=== PATIENT | male | born 1965 | race Caucasian/White ===

== ENCOUNTER 2023-08-02 18:45 | Inpatient (IN) | payer OTHER ==
[~2023-08-02] VITALS: Ht 185.4 cm; Wt 101.9 kg
[2023-08-02] MEDS ORDERED: IV NORMAL SALINE 500 ML IV ONE ×3 (19:30→22:45)
[2023-08-02] MEDS ORDERED: LISI-782 PO (19:33)
[2023-08-02] MEDS ORDERED: FURO-152 PO (19:33)
[2023-08-02] MEDS ORDERED: ALLO100T PO (19:33)
[2023-08-02] MEDS ORDERED: APIX5TAB4 PO (19:33)
[2023-08-02 19:51] LABS: BASOPHILS % (AUTO) 0.2 % (0.0-2.0); HEMATOCRIT 23.8 % (36.7-47.1); HEMOGLOBIN 7.9 g/dL (12.5-16.3); LYMPHOCYTES # (AUTO) 0.4 K/uL (0.8-4.8); LYMPHOCYTES % (AUTO) 1.9 % (20.5-51.5); MEAN CORPUSCULAR HEMOGLOBIN 33.4 uug (23.8-33.4); MEAN CORPUSCULAR HGB CONC 33 g/dL (32.5-36.3); MEAN CORPUSCULAR VOLUME 99.9 fL (73.0-96.2); MONOCYTES # (AUTO) 0.8 K/uL (0.1-1.30); MONOCYTES % (AUTO) 4.2 % (0.0-11.0); NEUTROPHILS # (AUTO) 17.4 K/uL (1.8-8.9); NEUTROPHILS % (AUTO) 93.7 % (38.5-71.5); PLATELET COUNT (AUTO) 115 K/uL (152-348); RED CELL DISTRIBUTION WIDTH 14.6 % (12.1-16.2); WHITE BLOOD COUNT (AUTO) 18.6 K/uL (3.6-10.2)
[2023-08-02 20:20] LABS: ALANINE AMINOTRANSFERASE 17 U/L (16-63); ALKALINE PHOSPHATASE 85 U/L (50-136); ASPARTATE AMINOTRANSFERASE 40 U/L (15-37); BILIRUBIN,DIRECT 0.2 mg/dL (0.0-0.2); BILIRUBIN,TOTAL 0.5 mg/dL (0.2-1.0); CALCIUM 7.5 mg/dL (8.5-10.1); CARBON DIOXIDE 23 mmol/L (21-32); CHLORIDE 93 mmol/L (98-107); GLUCOSE 83 mg/dL (74-106); POTASSIUM 3.1 mmol/L (3.5-5.1); SODIUM SERUM 129 mmol/L (136-145); TOTAL PROTEIN, SERUM 4.3 g/dL (6.4-8.2); UREA NITROGEN, BLOOD 21 mg/dL (7-18)
[2023-08-02 20:22] LABS: ALBUMIN 1.3 g/dL (3.4-5.0); MAGNESIUM 1.6 mg/dL (1.8-2.4)
[2023-08-02 20:25] LABS: DIFFERENTIAL COMMENT 1; RED BLOOD CELL COUNT(AUTO) 2.38 MIL/uL (4.06-5.63)
[2023-08-02 20:43] LABS: ETHANOL < 3 MG/DL (0-10)
[2023-08-02] MEDS ORDERED: ALBUMIN HUMAN 25% 100 ML IV ONE (21:30)
[2023-08-02] MEDS ORDERED: CEFTRIAXONE 1 G in IV DEXTROSE 5% 50 ML IV ONE (22:00)
[2023-08-02] MEDS ORDERED: POTASSIUM BICARBONATE/CIT AC 25 MEQ TABLET.EFF PO ONE (22:00)
[2023-08-02] MEDS ORDERED: CEFTRIAXONE /D5W 50ML IVPB **ER PYXIS IV ONE (23:09)
[2023-08-03] MEDS ORDERED: IV NORMAL SALINE 500 ML IV ONE (02:30)
[2023-08-03] MEDS ORDERED: ONDANSETRON 4 MG/2 ML VIAL IV PRN (03:00)
[2023-08-03] MEDS ORDERED: MAGNESIUM HYDROXIDE 30 ML LIQUID UDC PO PRN (03:00)
[2023-08-03] MEDS ORDERED: IV NS 1000 ML 1,000 ML IV PRN (03:00)
[2023-08-03] MEDS ORDERED: MIDODRINE HCL 5 MG TABLET PO ONE (03:27)
[2023-08-03] MEDS ORDERED: levoFLOXacin 750MG/D5W 150 ML IV ONE (03:28)
[2023-08-03] MEDS ORDERED: MIDODRINE HCL 5 MG TABLET ONE ×2 (03:29→21:16)
[2023-08-03] MEDS ORDERED: MAGNESIUM SULFATE/D5W 100 ML ONE ×2 (03:29→03:51)
[2023-08-03] MEDS ORDERED: levoFLOXacin 750MG/D5W 750 MG in PREMIXED 1 EACH IV SCH (04:00)
[2023-08-03] MEDS: MAGNESIUM SULFATE/D5W 100 ML IV SCH ×2 (05:03→06:02)
[2023-08-03 05:34] LABS: BASOPHILS % (AUTO) 0.2 % (0.0-2.0); EOSINOPHILS # (AUTO) 0.1 K/uL (0.0-0.7); EOSINOPHILS % (AUTO) 0.9 % (0.0-7.0); HEMATOCRIT 22.7 % (36.7-47.1); HEMOGLOBIN 7.7 g/dL (12.5-16.3); LYMPHOCYTES # (AUTO) 0.5 K/uL (0.8-4.8); LYMPHOCYTES % (AUTO) 4.3 % (20.5-51.5); MEAN CORPUSCULAR HEMOGLOBIN 34.1 uug (23.8-33.4); MEAN CORPUSCULAR HGB CONC 34 g/dL (32.5-36.3); MEAN CORPUSCULAR VOLUME 99.8 fL (73.0-96.2); MONOCYTES # (AUTO) 0.5 K/uL (0.1-1.30); MONOCYTES % (AUTO) 4.3 % (0.0-11.0); NEUTROPHILS # (AUTO) 9.5 K/uL (1.8-8.9); NEUTROPHILS % (AUTO) 90.3 % (38.5-71.5); PLATELET COUNT (AUTO) 72 K/uL (152-348); RED CELL DISTRIBUTION WIDTH 14.6 % (12.1-16.2); WHITE BLOOD COUNT (AUTO) 10.5 K/uL (3.6-10.2)
[2023-08-03 05:48] LABS: DIFFERENTIAL COMMENT 1; RED BLOOD CELL COUNT(AUTO) 2.27 MIL/uL (4.06-5.63)
[2023-08-03 05:52] LABS: THYROID STIMULATING HORMONE 2.938 mIU/mL (0.358-3.740)
[2023-08-03] MEDS ORDERED: PANTOPRAZOLE SODIUM 40 MG TABLET.DR PO ONE (06:06)
[2023-08-03] MEDS: PANTOPRAZOLE SODIUM 40 MG TABLET.DR PO SCH (06:07)
[2023-08-03 06:22] LABS: BILIRUBIN,TOTAL 0.4 mg/dL (0.2-1.0); CALCIUM 6.8 mg/dL (8.5-10.1); CREATININE 1.9 mg/dL (0.6-1.3); MAGNESIUM 1.6 mg/dL (1.8-2.4); POTASSIUM 3.5 mmol/L (3.5-5.1); TOTAL PROTEIN, SERUM 3.9 g/dL (6.4-8.2)
[2023-08-03 06:33] LABS: ALBUMIN 1.2 g/dL (3.4-5.0)
[2023-08-03 06:48] LABS: LYMPHOCYTES % (MANUAL) 2 % (20-40); MONOCYTES % (MANUAL) 4 % (2-10); NEUTROPHILS % (MANUAL) 94 % (42-75); PLATELET ESTIMATE MARKED DECREASED
[2023-08-03] MEDS ORDERED: IV NORMAL SALINE 1000 ML BAG IV ONE (11:00)
[2023-08-03 11:29] LABS: *BLOOD, URINE 2+ (NEGATIVE); *CLARITY,URINE CLEAR (CLEAR); *COLOR,URINE YELLOW (YELLOW); *KETONES,URINE TRACE (NEGATIVE); *PROTEIN,URINE 1+ (NEGATIVE); *UROBILINOGEN,URINE 0.2 E.U./dl (NORMAL); LEUKOCYTE ESTERASE ,URINE NEGATIVE (NEGATIVE); NITRITE, URINE NEGATIVE (NEGATIVE); PH,URINE 5.5 (5.0-8.0); UGLUCOSE NEGATIVE (NEGATIVE)
[2023-08-03 11:44] LABS: *BILIRUBIN,URIN 1+ (NEGATIVE)
[2023-08-03] MEDS ORDERED: MAGNESIUM OXIDE 400 MG TABLET PO ONE (12:00)
[2023-08-03 13:10] LABS: BASOPHILS % (AUTO) 0.2 % (0.0-2.0); DIFFERENTIAL COMMENT 0; EOSINOPHILS # (AUTO) 0.1 K/uL (0.0-0.7); EOSINOPHILS % (AUTO) 1.1 % (0.0-7.0); HEMATOCRIT 23.8 % (36.7-47.1); HEMOGLOBIN 8.1 g/dL (12.5-16.3); LYMPHOCYTES # (AUTO) 0.4 K/uL (0.8-4.8); MEAN CORPUSCULAR HEMOGLOBIN 33.8 uug (23.8-33.4); MEAN CORPUSCULAR HGB CONC 34 g/dL (32.5-36.3); MEAN CORPUSCULAR VOLUME 99.3 fL (73.0-96.2); MONOCYTES # (AUTO) 0.2 K/uL (0.1-1.30); MONOCYTES % (AUTO) 2.7 % (0.0-11.0); NEUTROPHILS # (AUTO) 8.3 K/uL (1.8-8.9); PLATELET COUNT (AUTO) 68 K/uL (152-348); RED CELL DISTRIBUTION WIDTH 14.7 % (12.1-16.2); WHITE BLOOD COUNT (AUTO) 9.1 K/uL (3.6-10.2)
[2023-08-03 13:13] LABS: BACTERIA,URINE NONE SEEN /HPF (NONE SEEN); SQUAMOUS EPITHELIAL CELL,UR MODERATE /HPF (NONE SEEN)
[2023-08-03 13:14] LABS: WBC,URINE 0-3 /HPF (0-3)
[2023-08-03 13:18] LABS: RED BLOOD CELL COUNT(AUTO) 2.39 MIL/uL (4.06-5.63)
[2023-08-03] MEDS ORDERED: ALLO100T56 PO (17:35)
[2023-08-03] MEDS ORDERED: LISI20TA30 PO (17:35)
[2023-08-03] MEDS ORDERED: APIX5TAB PO (17:35)
[2023-08-03] MEDS ORDERED: FURO40TA5 PO (17:35)
[2023-08-03] MEDS ORDERED: MAGNESIUM OXIDE 400 MG TABLET ONE (19:45)
[2023-08-03] MEDS ORDERED: CLINDAMYCIN 600 MG PIGGYBACK**ER OMNI IV ONE (21:17)
[2023-08-03] MEDS: CLINDAMYCIN PHOSPHATE IV 600 MG in IV DEXTROSE 5% 100 ML IV SCH (21:25)
[2023-08-03] MEDS: MIDODRINE HCL 5 MG TABLET PO SCH (21:26)
[2023-08-04] VITALS (68 sets, daily range): BP systolic 62–122; BP diastolic 32–107; TEMP 96.5–98; O2SAT 97–100
[2023-08-04] MEDS: IV NS 1000 ML 1,000 ML IV PRN ×2 (00:30→09:38)
[2023-08-04] MEDS ORDERED: levoFLOXacin 750MG/D5W 750 MG in PREMIXED 1 EACH IV SCH (04:00)
[2023-08-04 04:44] LABS: BASOPHILS % (AUTO) 0.2 % (0.0-2.0); EOSINOPHILS # (AUTO) 0.1 K/uL (0.0-0.7); EOSINOPHILS % (AUTO) 0.9 % (0.0-7.0); HEMATOCRIT 24.8 % (36.7-47.1); HEMOGLOBIN 8.5 g/dL (12.5-16.3); LYMPHOCYTES # (AUTO) 0.4 K/uL (0.8-4.8); LYMPHOCYTES % (AUTO) 6.5 % (20.5-51.5); MEAN CORPUSCULAR HEMOGLOBIN 34.6 uug (23.8-33.4); MEAN CORPUSCULAR HGB CONC 35 g/dL (32.5-36.3); MEAN CORPUSCULAR VOLUME 100.3 fL (73.0-96.2); MONOCYTES # (AUTO) 0.3 K/uL (0.1-1.30); MONOCYTES % (AUTO) 4.5 % (0.0-11.0); NEUTROPHILS % (AUTO) 87.9 % (38.5-71.5); PLATELET COUNT (AUTO) 57 K/uL (152-348); RED CELL DISTRIBUTION WIDTH 14.5 % (12.1-16.2); WHITE BLOOD COUNT (AUTO) 6.8 K/uL (3.6-10.2)
[2023-08-04 05:12] LABS: DIFFERENTIAL COMMENT 1; RED BLOOD CELL COUNT(AUTO) 2.47 MIL/uL (4.06-5.63)
[2023-08-04] MEDS ORDERED: NOREPINEPHRINE BITARTRATE 4 MG/4 ML VIAL IV ONE ×2 (05:23→11:06)
[2023-08-04] MEDS: NOREPINEPHRINE BITARTRATE 8 MG in IV NORMAL SALINE 242 ML IV PRN ×3 (05:30→11:14)
[2023-08-04 05:37] LABS: BILIRUBIN,TOTAL 0.4 mg/dL (0.2-1.0); CREATININE 1.8 mg/dL (0.6-1.3); MAGNESIUM 1.9 mg/dL (1.8-2.4); PHOSPHOROUS 4.7 mg/dL (2.5-4.9); POTASSIUM 3.3 mmol/L (3.5-5.1); TOTAL PROTEIN, SERUM 3.9 g/dL (6.4-8.2)
[2023-08-04 05:45] LABS: ALBUMIN 1.1 g/dL (3.4-5.0)
[2023-08-04 05:59] LABS: CALCIUM 7.1 mg/dL (8.5-10.1)
[2023-08-04 06:35] LABS: ANISOCYTOSIS 1+; LYMPHOCYTES % (MANUAL) 9 % (20-40); MONOCYTES % (MANUAL) 2 % (2-10); NEUTROPHILS % (MANUAL) 89 % (42-75); PLATELET ESTIMATE MARKED DECREASED
[2023-08-04] MEDS: PANTOPRAZOLE SODIUM 40 MG TABLET.DR PO SCH (07:58)
[2023-08-04] MEDS: MIDODRINE HCL 5 MG TABLET PO SCH (08:36)
[2023-08-04] MEDS: CLINDAMYCIN PHOSPHATE IV 600 MG in IV DEXTROSE 5% 100 ML IV SCH ×2 (08:37→20:39)
[2023-08-04] MEDS ORDERED: POTASSIUM CHLORIDE 50 ML IV SCH (11:00)
[2023-08-04] MEDS: REMEDY ESSENTIAL ZINC PASTE 113 GM TOP SCH ×2 (12:15→20:43)
[2023-08-04] MEDS: NOREPINEPHRINE BITARTRATE 32 MG in IV NORMAL SALINE 218 ML IV PRN (13:57)
[2023-08-04] MEDS: REMEDY ESSENTIAL ZINC PASTE 113 GM TP PRN (20:41)
[2023-08-04] MEDS: IV NS 1000 ML 1,000 ML IV SCH (21:30)
[2023-08-04] MEDS: TEMAZEPAM 15 MG CAPSULE PO PRN (23:55)
[2023-08-05] VITALS (54 sets, daily range): BP systolic 76–119; BP diastolic 28–89; TEMP 97.4–98; O2SAT 96–100
[2023-08-05] MEDS: NOREPINEPHRINE BITARTRATE 32 MG in IV NORMAL SALINE 218 ML IV PRN ×2 (00:39→12:24)
[2023-08-05 05:24] LABS: BASOPHILS # (AUTO) 0.1 K/UL (0.0-0.2); BASOPHILS % (AUTO) 0.2 % (0.0-2.0); EOSINOPHILS % (AUTO) 0.2 % (0.0-7.0); HEMATOCRIT 29.5 % (36.7-47.1); HEMOGLOBIN 9.8 g/dL (12.5-16.3); LYMPHOCYTES # (AUTO) 1.1 K/uL (0.8-4.8); LYMPHOCYTES % (AUTO) 4.9 % (20.5-51.5); MEAN CORPUSCULAR HEMOGLOBIN 33.2 uug (23.8-33.4); MEAN CORPUSCULAR HGB CONC 33 g/dL (32.5-36.3); MEAN CORPUSCULAR VOLUME 99.8 fL (73.0-96.2); MONOCYTES # (AUTO) 1.1 K/uL (0.1-1.30); MONOCYTES % (AUTO) 5.3 % (0.0-11.0); NEUTROPHILS # (AUTO) 19.2 K/uL (1.8-8.9); NEUTROPHILS % (AUTO) 89.4 % (38.5-71.5); PLATELET COUNT (AUTO) 86 K/uL (152-348); RED BLOOD CELL COUNT(AUTO) 2.96 MIL/uL (4.06-5.63); RED CELL DISTRIBUTION WIDTH 15.1 % (12.1-16.2); WHITE BLOOD COUNT (AUTO) 21.4 K/uL (3.6-10.2)
[2023-08-05 05:42] LABS: DIFFERENTIAL COMMENT 1
[2023-08-05 05:46] LABS: CALCIUM 7.8 mg/dL (8.5-10.1); CREATININE 1.8 mg/dL (0.6-1.3); PHOSPHOROUS 4.3 mg/dL (2.5-4.9); POTASSIUM 3.4 mmol/L (3.5-5.1)
[2023-08-05] MEDS: PANTOPRAZOLE SODIUM 40 MG TABLET.DR PO SCH (06:55)
[2023-08-05] MEDS: IV NS 1000 ML 1,000 ML IV SCH ×3 (07:30→18:26)
[2023-08-05] MEDS ORDERED: POTASSIUM CHLORIDE 20 MEQ TAB.PRT.SR PO ONE (07:45)
[2023-08-05] MEDS: ACETAMINOPHEN 325 MG TABLET PO PRN (08:20)
[2023-08-05] MEDS: CLINDAMYCIN PHOSPHATE IV 600 MG in IV DEXTROSE 5% 100 ML IV SCH (09:00)
[2023-08-05] MEDS: REMEDY ESSENTIAL ZINC PASTE 113 GM TOP SCH ×2 (09:16→21:07)
[2023-08-05] MEDS ORDERED: CEFAZOLIN 1 G VIAL ONE (10:00)
[2023-08-05] MEDS ORDERED: ETOMIDATE 20 MG/10 ML VIAL ONE (10:00)
[2023-08-05] MEDS ORDERED: KETAMINE HCL 500 MG/10 ML INJ ONE (10:17)
[2023-08-05] MEDS ORDERED: FENTANYL CITRATE 100 MCG/2 ML AMPUL ONE (10:17)
[2023-08-05] MEDS ORDERED: MIDAZOLAM HCL 2 MG/2 ML VIAL ONE (10:18)
[2023-08-05] MEDS ORDERED: HYDROMORPHONE 2 MG/1 ML DISP.SYRIN IV PRN (12:00)
[2023-08-05] MEDS: ALBUMIN HUMAN 25% 100 ML IV SCH ×2 (15:33→18:25)
[2023-08-05] MEDS ORDERED: APIXABAN 5 MG TABLET PO SCH (17:00)
[2023-08-05] MEDS: PIPERACILLIN SODIUM/TAZOBACTAM 3.375 G in IV DEXTROSE 5% 50 ML IV SCH ×2 (18:21→22:15)
[2023-08-06] VITALS (72 sets, daily range): BP systolic 76–110; BP diastolic 44–99; TEMP 96.9–98.6; O2SAT 97–100
[2023-08-06] MEDS: ALBUMIN HUMAN 25% 100 ML IV SCH ×2 (00:53→05:30)
[2023-08-06] MEDS: NOREPINEPHRINE BITARTRATE 32 MG in IV NORMAL SALINE 218 ML IV PRN ×2 (01:29→18:37)
[2023-08-06] MEDS ORDERED: ALBUMIN HUMAN 25% 50 ML ONE (02:08)
[2023-08-06] MEDS: IV NS 1000 ML 1,000 ML IV SCH ×3 (03:30→18:37)
[2023-08-06] MEDS: PIPERACILLIN SODIUM/TAZOBACTAM 3.375 G in IV DEXTROSE 5% 50 ML IV SCH (05:29)
[2023-08-06] MEDS ORDERED: HYDROMORPHONE 2 MG/1 ML DISP.SYRIN IV PRN (05:30)
[2023-08-06 05:36] LABS: BASOPHILS % (AUTO) 0.2 % (0.0-2.0); EOSINOPHILS # (AUTO) 0.1 K/uL (0.0-0.7); EOSINOPHILS % (AUTO) 0.8 % (0.0-7.0); HEMATOCRIT 24.6 % (36.7-47.1); HEMOGLOBIN 8.2 g/dL (12.5-16.3); LYMPHOCYTES % (AUTO) 8.8 % (20.5-51.5); MEAN CORPUSCULAR HEMOGLOBIN 33.2 uug (23.8-33.4); MEAN CORPUSCULAR HGB CONC 33 g/dL (32.5-36.3); MEAN CORPUSCULAR VOLUME 99.3 fL (73.0-96.2); MONOCYTES # (AUTO) 0.6 K/uL (0.1-1.30); MONOCYTES % (AUTO) 5.6 % (0.0-11.0); NEUTROPHILS # (AUTO) 9.5 K/uL (1.8-8.9); NEUTROPHILS % (AUTO) 84.6 % (38.5-71.5); RED CELL DISTRIBUTION WIDTH 15.5 % (12.1-16.2); WHITE BLOOD COUNT (AUTO) 11.3 K/uL (3.6-10.2)
[2023-08-06] MEDS: PANTOPRAZOLE SODIUM 40 MG TABLET.DR PO SCH (05:49)
[2023-08-06 06:07] LABS: CARBON DIOXIDE 22 mmol/L (21-32); CHLORIDE 103 mmol/L (98-107); CREATININE 1.6 mg/dL (0.6-1.3); GLUCOSE 105 mg/dL (74-106); MAGNESIUM 1.8 mg/dL (1.8-2.4); SODIUM SERUM 138 mmol/L (136-145); UREA NITROGEN, BLOOD 23 mg/dL (7-18)
[2023-08-06 06:10] LABS: RED BLOOD CELL COUNT(AUTO) 2.47 MIL/uL (4.06-5.63)
[2023-08-06 06:14] LABS: DIFFERENTIAL COMMENT 1; PLATELET COUNT (AUTO) 42 K/uL (152-348); POTASSIUM 2.7 mmol/L (3.5-5.1)
[2023-08-06 06:15] LABS: NT-PRO BNP > 35000 pg/mL (0-125)
[2023-08-06] MEDS: REMEDY ESSENTIAL ZINC PASTE 113 GM TOP SCH ×2 (08:09→18:38)
[2023-08-06] MEDS: ALLOPURINOL 100 MG TABLET PO SCH (08:09)
[2023-08-06] MEDS ORDERED: LISINOPRIL 20 MG TABLET PO SCH (09:00)
[2023-08-06] MEDS ORDERED: POTASSIUM CHLORIDE 50 ML IV SCH (09:30)
[2023-08-06] MEDS: POTASSIUM CHLORIDE 10 MEQ, LIDOCAINE-MPF 1% 1 ML in IV DEXTROSE 5% 100 ML IV SCH ×4 (10:49→14:11)
[2023-08-06] MEDS ORDERED: IPRATROPIUM BROMIDE 0.5 MG/2.5 ML NEBU NEB PRN (12:30)
[2023-08-06 13:06] LABS: PTH, INTACT 44 pg/mL (15-65)
[2023-08-06] MEDS ORDERED: PIPERACILLIN SODIUM/TAZOBACTAM 3.375 G in IV DEXTROSE 5% 100 ML IV SCH (14:00)
[2023-08-06] MEDS: MEROPENEM 0.5 G in IV NORMAL SALINE 50 ML IV SCH ×2 (15:55→20:50)
[2023-08-07] VITALS (92 sets, daily range): BP systolic 83–126; BP diastolic 41–88; TEMP 97.8–99.8; O2SAT 95–100
[2023-08-07 05:36] LABS: BASOPHILS # (AUTO) 0.2 K/UL (0.0-0.2); BASOPHILS % (AUTO) 1.3 % (0.0-2.0); EOSINOPHILS # (AUTO) 0.1 K/uL (0.0-0.7); EOSINOPHILS % (AUTO) 0.6 % (0.0-7.0); HEMATOCRIT 26.1 % (36.7-47.1); HEMOGLOBIN 8.8 g/dL (12.5-16.3); LYMPHOCYTES # (AUTO) 0.8 K/uL (0.8-4.8); MEAN CORPUSCULAR HEMOGLOBIN 33.3 uug (23.8-33.4); MEAN CORPUSCULAR HGB CONC 34 g/dL (32.5-36.3); MONOCYTES # (AUTO) 0.7 K/uL (0.1-1.30); MONOCYTES % (AUTO) 3.5 % (0.0-11.0); NEUTROPHILS # (AUTO) 17.6 K/uL (1.8-8.9); NEUTROPHILS % (AUTO) 90.6 % (38.5-71.5); RED BLOOD CELL COUNT(AUTO) 2.63 MIL/uL (4.06-5.63); RED CELL DISTRIBUTION WIDTH 15.3 % (12.1-16.2); WHITE BLOOD COUNT (AUTO) 19.4 K/uL (3.6-10.2)
[2023-08-07 05:55] LABS: MAGNESIUM 1.7 mg/dL (1.8-2.4)
[2023-08-07 05:58] LABS: ALBUMIN 1.7 g/dL (3.4-5.0); BILIRUBIN,TOTAL 0.8 mg/dL (0.2-1.0); CREATININE 1.2 mg/dL (0.6-1.3); TOTAL PROTEIN, SERUM 4.5 g/dL (6.4-8.2)
[2023-08-07 06:14] LABS: DIFFERENTIAL COMMENT 1; PLATELET COUNT (AUTO) 47 K/uL (152-348)
[2023-08-07 06:15] LABS: CALCIUM 7.4 mg/dL (8.5-10.1); POTASSIUM 2.8 mmol/L (3.5-5.1)
[2023-08-07] MEDS: PANTOPRAZOLE SODIUM 40 MG TABLET.DR PO SCH (06:50)
[2023-08-07] MEDS: MEROPENEM 0.5 G in IV NORMAL SALINE 50 ML IV SCH ×3 (06:50→21:27)
[2023-08-07 08:09] LABS: A/G RATIO 0.6 (0.7-1.7); ALBUMIN 1.3 g/dL (2.9-4.4); ALPHA-1-GLOBULIN 0.3 g/dL (0.0-0.4); ALPHA-2-GLOBULIN 0.5 g/dL (0.4-1.0); BETA GLOBULIN 0.5 g/dL (0.7-1.3); GAMMA GLOBULIN 0.7 g/dL (0.4-1.8); GLOBULIN, TOTAL 2.1 g/dL (2.2-3.9); M-SPIKE Not Observed g/dL (Not Observed)
[2023-08-07] MEDS ORDERED: POTASSIUM CHLORIDE 20 MEQ POWDER PACKET GT ONE (08:30)
[2023-08-07] MEDS ORDERED: MIDODRINE HCL 2.5 MG TABLET PO SCH (08:30)
[2023-08-07] MEDS ORDERED: POTASSIUM CHLORIDE 20 MEQ TAB.PRT.SR PO ONE (09:00)
[2023-08-07] MEDS ORDERED: POTASSIUM CHLORIDE 20 MEQ TAB.PRT.SR PO SCH (09:00)
[2023-08-07] MEDS: ALLOPURINOL 100 MG TABLET PO SCH (09:05)
[2023-08-07] MEDS: MIDODRINE HCL 5 MG TABLET PO SCH ×3 (09:05→21:28)
[2023-08-07] MEDS: MAGNESIUM SULFATE/D5W 100 ML IV SCH ×2 (09:06→10:42)
[2023-08-07] MEDS: POTASSIUM CHLORIDE 50 ML IV SCH ×2 (09:07→10:42)
[2023-08-07] MEDS: NEPRO (VANILLA) 237 ML CAN PO SCH (09:08)
[2023-08-07] MEDS: REMEDY ESSENTIAL ZINC PASTE 113 GM TOP SCH ×2 (09:09→21:29)
[2023-08-07] MEDS: IV NS 1000 ML 1,000 ML IV SCH ×2 (10:43→22:08)
[2023-08-07] MEDS: HYDROMORPHONE 1 MG/1 ML DISP.SYRIN IV PRN (11:07)
[2023-08-07] MEDS: ALBUMIN HUMAN 25% 100 ML IV SCH ×4 (12:10→23:43)
[2023-08-07] MEDS: SODIUM HYPOCHLORITE 0.125% (QUARTER STRENGTH) 473 ML BOTTLE TP SCH (12:28)
[2023-08-07] MEDS: FUROSEMIDE 20 MG/2 ML VIAL IV SCH ×2 (12:30→21:25)
[2023-08-07] MEDS: ACETAMINOPHEN 325 MG TABLET PO PRN (12:30)
[2023-08-07] MEDS ORDERED: NEUTRA PHOS PACKET PO ONE (17:45)
[2023-08-07] MEDS: REMEDY ESSENTIAL ZINC PASTE 113 GM TP PRN ×2 (21:25→21:29)
[2023-08-07] MEDS ORDERED: VANCOMYCIN IV 1,000 MG in IV DEXTROSE 5% 250 ML IV ONE (21:30)
[2023-08-07] MEDS: NOREPINEPHRINE BITARTRATE 32 MG in IV NORMAL SALINE 218 ML IV PRN (21:31)
[2023-08-07] MEDS ORDERED: VANCOMYCIN IV 200 ML ONE (21:45)
[2023-08-07] MEDS: TEMAZEPAM 15 MG CAPSULE PO PRN (22:00)
[2023-08-08] VITALS (64 sets, daily range): BP systolic 89–122; BP diastolic 46–67; TEMP 98–99.4; O2SAT 95–100
[2023-08-08 05:37] LABS: EOSINOPHILS # (AUTO) 0.1 K/uL (0.0-0.7); MONOCYTES # (AUTO) 0.4 K/uL (0.1-1.30)
[2023-08-08 05:38] LABS: BASOPHILS % (AUTO) 0.2 % (0.0-2.0); EOSINOPHILS % (AUTO) 0.7 % (0.0-7.0); HEMATOCRIT 21.7 % (36.7-47.1); LYMPHOCYTES % (AUTO) 9.9 % (20.5-51.5); MEAN CORPUSCULAR HEMOGLOBIN 33.8 uug (23.8-33.4); MEAN CORPUSCULAR HGB CONC 34 g/dL (32.5-36.3); MEAN CORPUSCULAR VOLUME 98.6 fL (73.0-96.2); MONOCYTES % (AUTO) 3.5 % (0.0-11.0); NEUTROPHILS % (AUTO) 85.7 % (38.5-71.5); RED CELL DISTRIBUTION WIDTH 15.2 % (12.1-16.2); WHITE BLOOD COUNT (AUTO) 10.5 K/uL (3.6-10.2)
[2023-08-08 05:50] LABS: ALBUMIN 2.2 g/dL (3.4-5.0); BILIRUBIN,TOTAL 1.1 mg/dL (0.2-1.0); CALCIUM 7.5 mg/dL (8.5-10.1); CREATININE 0.9 mg/dL (0.6-1.3); MAGNESIUM 1.8 mg/dL (1.8-2.4); PHOSPHOROUS 2.1 mg/dL (2.5-4.9); POTASSIUM 2.9 mmol/L (3.5-5.1); TOTAL PROTEIN, SERUM 4.8 g/dL (6.4-8.2)
[2023-08-08] MEDS: MEROPENEM 0.5 G in IV NORMAL SALINE 50 ML IV SCH ×3 (05:52→21:20)
[2023-08-08] MEDS: PANTOPRAZOLE SODIUM 40 MG TABLET.DR PO SCH (05:52)
[2023-08-08] MEDS: MIDODRINE HCL 5 MG TABLET PO SCH ×3 (05:52→21:17)
[2023-08-08 06:04] LABS: HEMOGLOBIN 7.4 g/dL (12.5-16.3)
[2023-08-08 06:06] LABS: DIFFERENTIAL COMMENT 1; PLATELET COUNT (AUTO) 44 K/uL (152-348)
[2023-08-08] MEDS ORDERED: POTASSIUM CHLORIDE 20 MEQ POWDER PACKET GT ONE (07:30)
[2023-08-08] MEDS ORDERED: POTASSIUM CHLORIDE 20 MEQ TAB.PRT.SR PO ONE (08:00)
[2023-08-08] MEDS: POTASSIUM CHLORIDE 50 ML IV SCH ×4 (08:19→10:55)
[2023-08-08] MEDS: REMEDY ESSENTIAL ZINC PASTE 113 GM TOP SCH ×2 (09:00→21:21)
[2023-08-08] MEDS ORDERED: FUROSEMIDE 20 MG/2 ML VIAL IV SCH (09:00)
[2023-08-08] MEDS: SODIUM HYPOCHLORITE 0.125% (QUARTER STRENGTH) 473 ML BOTTLE TP SCH (09:00)
[2023-08-08] MEDS: ALLOPURINOL 100 MG TABLET PO SCH (09:09)
[2023-08-08] MEDS: FUROSEMIDE 40 MG/4 ML VIAL IVP SCH ×2 (09:09→21:20)
[2023-08-08] MEDS: HYDROMORPHONE 1 MG/1 ML DISP.SYRIN IV PRN ×2 (09:11→17:29)
[2023-08-08] MEDS: NEPRO (VANILLA) 237 ML CAN PO SCH (09:19)
[2023-08-08] MEDS: VANCOMYCIN IV 1,500 MG in IV DEXTROSE 5% 500 ML IV SCH ×2 (09:19→21:16)
[2023-08-08 15:23] LABS: BAND % (MANUAL) 2 % (0-10); LYMPHOCYTES % (MANUAL) 12 % (20-40); MONOCYTES % (MANUAL) 4 % (2-10)
[2023-08-08 15:24] LABS: ANISOCYTOSIS 1+; HYPOCHROMASIA 1+; NEUTROPHILS % (MANUAL) 82 % (42-75); PLATELET ESTIMATE DECREASED
[2023-08-08] MEDS ORDERED: NEUTRA PHOS PACKET PO ONE (15:30)
[2023-08-08] MEDS ORDERED: POTASSIUM PHOSPHATE MM 15 MMOL in IV NORMAL SALINE 250 ML IV ONE (15:30)
[2023-08-08] MEDS: NOREPINEPHRINE BITARTRATE 8 MG in IV NORMAL SALINE 242 ML IV PRN (18:13)
[2023-08-08] MEDS: TEMAZEPAM 15 MG CAPSULE PO PRN (21:19)
[2023-08-09] VITALS (45 sets, daily range): BP systolic 83–125; BP diastolic 45–74; TEMP 97.9–99.2; O2SAT 99
[2023-08-09] MEDS: HYDROMORPHONE 1 MG/1 ML DISP.SYRIN IV PRN ×2 (02:02→16:04)
[2023-08-09 05:11] LABS: BASOPHILS # (AUTO) 0.1 K/UL (0.0-0.2); BASOPHILS % (AUTO) 0.6 % (0.0-2.0); EOSINOPHILS # (AUTO) 0.1 K/uL (0.0-0.7); EOSINOPHILS % (AUTO) 0.8 % (0.0-7.0); HEMATOCRIT 22.6 % (36.7-47.1); HEMOGLOBIN 7.7 g/dL (12.5-16.3); LYMPHOCYTES # (AUTO) 1.3 K/uL (0.8-4.8); LYMPHOCYTES % (AUTO) 13.2 % (20.5-51.5); MEAN CORPUSCULAR HEMOGLOBIN 33.8 uug (23.8-33.4); MEAN CORPUSCULAR HGB CONC 34 g/dL (32.5-36.3); MEAN CORPUSCULAR VOLUME 98.7 fL (73.0-96.2); MONOCYTES # (AUTO) 0.5 K/uL (0.1-1.30); MONOCYTES % (AUTO) 4.9 % (0.0-11.0); NEUTROPHILS # (AUTO) 7.9 K/uL (1.8-8.9); NEUTROPHILS % (AUTO) 80.5 % (38.5-71.5); PLATELET COUNT (AUTO) 53 K/uL (152-348); RED CELL DISTRIBUTION WIDTH 15.4 % (12.1-16.2); WHITE BLOOD COUNT (AUTO) 9.9 K/uL (3.6-10.2)
[2023-08-09 05:15] LABS: DIFFERENTIAL COMMENT 1; RED BLOOD CELL COUNT(AUTO) 2.29 MIL/uL (4.06-5.63)
[2023-08-09 05:25] LABS: MAGNESIUM 1.5 mg/dL (1.8-2.4); PHOSPHOROUS 2.8 mg/dL (2.5-4.9)
[2023-08-09 05:26] LABS: ALBUMIN 1.7 g/dL (3.4-5.0); CALCIUM 7.4 mg/dL (8.5-10.1); CREATININE 0.8 mg/dL (0.6-1.3); POTASSIUM 3.5 mmol/L (3.5-5.1); TOTAL PROTEIN, SERUM 4.6 g/dL (6.4-8.2)
[2023-08-09] MEDS: MEROPENEM 0.5 G in IV NORMAL SALINE 50 ML IV SCH ×3 (05:35→21:24)
[2023-08-09] MEDS: PANTOPRAZOLE SODIUM 40 MG TABLET.DR PO SCH (05:37)
[2023-08-09] MEDS: MIDODRINE HCL 5 MG TABLET PO SCH ×3 (05:38→21:23)
[2023-08-09] MEDS ORDERED: POTASSIUM CHLORIDE 20 MEQ POWDER PACKET GT ONE (08:15)
[2023-08-09] MEDS ORDERED: POTASSIUM CHLORIDE 20 MEQ TAB.PRT.SR PO SCH (08:30)
[2023-08-09] MEDS: MAGNESIUM SULFATE/D5W 100 ML IV SCH ×4 (08:48→11:15)
[2023-08-09] MEDS: VANCOMYCIN IV 1,500 MG in IV DEXTROSE 5% 500 ML IV SCH ×2 (08:48→21:00)
[2023-08-09] MEDS: POTASSIUM CHLORIDE 10 MEQ TAB.PRT.SR PO SCH ×2 (08:48→11:30)
[2023-08-09] MEDS: NEPRO (VANILLA) 237 ML CAN PO SCH (08:55)
[2023-08-09] MEDS: ALLOPURINOL 100 MG TABLET PO SCH (08:55)
[2023-08-09] MEDS: SODIUM HYPOCHLORITE 0.125% (QUARTER STRENGTH) 473 ML BOTTLE TP SCH (09:00)
[2023-08-09] MEDS: REMEDY ESSENTIAL ZINC PASTE 113 GM TOP SCH ×2 (09:00→21:23)
[2023-08-09] MEDS: NOREPINEPHRINE BITARTRATE 8 MG in IV NORMAL SALINE 242 ML IV PRN (18:34)
[2023-08-09] MEDS: TEMAZEPAM 15 MG CAPSULE PO PRN ×2 (21:23→22:47)
[2023-08-10] VITALS (69 sets, daily range): BP systolic 88–138; BP diastolic 53–79; TEMP 98–98.3; O2SAT 98–100
[2023-08-10] MEDS: MEROPENEM 0.5 G in IV NORMAL SALINE 50 ML IV SCH ×3 (05:27→21:39)
[2023-08-10] MEDS: MIDODRINE HCL 5 MG TABLET PO SCH ×3 (05:27→21:42)
[2023-08-10] MEDS: PANTOPRAZOLE SODIUM 40 MG TABLET.DR PO SCH (05:29)
[2023-08-10] MEDS: REMEDY ESSENTIAL ZINC PASTE 113 GM TOP SCH ×2 (09:00→20:29)
[2023-08-10] MEDS: VANCOMYCIN IV 1,500 MG in IV DEXTROSE 5% 500 ML IV SCH (10:13)
[2023-08-10] MEDS: REMEDY ESSENTIAL ZINC PASTE 113 GM TP PRN (10:14)
[2023-08-10] MEDS: ALLOPURINOL 100 MG TABLET PO SCH (10:14)
[2023-08-10] MEDS: NEPRO (VANILLA) 237 ML CAN PO SCH (10:15)
[2023-08-10] MEDS: SODIUM HYPOCHLORITE 0.125% (QUARTER STRENGTH) 473 ML BOTTLE TP SCH (10:15)
[2023-08-10] MEDS: ALBUMIN HUMAN 25% 100 ML IV SCH ×3 (13:24→23:32)
[2023-08-10] MEDS: HYDROMORPHONE 1 MG/1 ML DISP.SYRIN IV PRN (18:13)
[2023-08-10] MEDS: NOREPINEPHRINE BITARTRATE 8 MG in IV NORMAL SALINE 242 ML IV PRN (20:29)
[2023-08-10] MEDS: TEMAZEPAM 15 MG CAPSULE PO PRN (21:41)
[2023-08-11] VITALS (47 sets, daily range): BP systolic 89–121; BP diastolic 52–86; TEMP 98–98.4; O2SAT 100
[2023-08-11 05:42] LABS: BASOPHILS % (AUTO) 0.7 % (0.0-2.0); DIFFERENTIAL COMMENT 0; EOSINOPHILS % (AUTO) 1.1 % (0.0-7.0); HEMATOCRIT 22.1 % (36.7-47.1); HEMOGLOBIN 7.5 g/dL (12.5-16.3); LYMPHOCYTES # (AUTO) 0.9 K/uL (0.8-4.8); LYMPHOCYTES % (AUTO) 20.7 % (20.5-51.5); MEAN CORPUSCULAR HEMOGLOBIN 33.6 uug (23.8-33.4); MEAN CORPUSCULAR HGB CONC 34 g/dL (32.5-36.3); MEAN CORPUSCULAR VOLUME 98.5 fL (73.0-96.2); MONOCYTES # (AUTO) 0.4 K/uL (0.1-1.30); MONOCYTES % (AUTO) 8.9 % (0.0-11.0); NEUTROPHILS # (AUTO) 2.8 K/uL (1.8-8.9); NEUTROPHILS % (AUTO) 68.6 % (38.5-71.5); PLATELET COUNT (AUTO) 63 K/uL (152-348); RED CELL DISTRIBUTION WIDTH 15.2 % (12.1-16.2); WHITE BLOOD COUNT (AUTO) 4.1 K/uL (3.6-10.2)
[2023-08-11 05:45] LABS: RED BLOOD CELL COUNT(AUTO) 2.24 MIL/uL (4.06-5.63)
[2023-08-11] MEDS: MEROPENEM 0.5 G in IV NORMAL SALINE 50 ML IV SCH ×3 (06:17→21:34)
[2023-08-11] MEDS: PANTOPRAZOLE SODIUM 40 MG TABLET.DR PO SCH (06:18)
[2023-08-11] MEDS: MIDODRINE HCL 5 MG TABLET PO SCH ×3 (06:18→21:35)
[2023-08-11] MEDS: ALBUMIN HUMAN 25% 100 ML IV SCH (06:21)
[2023-08-11 06:54] LABS: CREATININE 0.7 mg/dL (0.6-1.3); MAGNESIUM 2.1 mg/dL (1.8-2.4); PHOSPHOROUS 3.4 mg/dL (2.5-4.9); POTASSIUM 3.5 mmol/L (3.5-5.1); VANCOMYCIN,RANDOM 26.1 ug/mL (20.0-30.0)
[2023-08-11] MEDS: ALLOPURINOL 100 MG TABLET PO SCH (08:21)
[2023-08-11] MEDS: NEPRO (VANILLA) 237 ML CAN PO SCH (08:25)
[2023-08-11] MEDS: SODIUM HYPOCHLORITE 0.125% (QUARTER STRENGTH) 473 ML BOTTLE TP SCH (08:26)
[2023-08-11] MEDS: REMEDY ESSENTIAL ZINC PASTE 113 GM TOP SCH ×2 (08:28→21:36)
[2023-08-11] MEDS: HYDROMORPHONE 1 MG/1 ML DISP.SYRIN IV PRN (10:38)
[2023-08-11] MEDS: LINEZOLID 600 MG TABLET PO SCH (18:30)
[2023-08-11] MEDS: TEMAZEPAM 15 MG CAPSULE PO PRN (21:35)
[2023-08-11] MEDS: ACETAMINOPHEN 325 MG TABLET PO PRN (21:35)
[2023-08-11] MEDS: REMEDY ESSENTIAL ZINC PASTE 113 GM TP PRN (21:36)
[2023-08-12] VITALS (14 sets, daily range): BP systolic 89–125; BP diastolic 52–80; TEMP 97–98.1; O2SAT 99–100
[2023-08-12] MEDS: HYDROMORPHONE 1 MG/1 ML DISP.SYRIN IV PRN ×2 (02:59→17:33)
[2023-08-12] MEDS: MIDODRINE HCL 5 MG TABLET PO SCH ×3 (05:25→23:22)
[2023-08-12] MEDS: MEROPENEM 0.5 G in IV NORMAL SALINE 50 ML IV SCH ×3 (05:25→23:09)
[2023-08-12] MEDS: PANTOPRAZOLE SODIUM 40 MG TABLET.DR PO SCH (05:25)
[2023-08-12] MEDS: ALLOPURINOL 100 MG TABLET PO SCH (09:55)
[2023-08-12] MEDS: LINEZOLID 600 MG TABLET PO SCH ×2 (09:56→20:56)
[2023-08-12] MEDS: SODIUM HYPOCHLORITE 0.125% (QUARTER STRENGTH) 473 ML BOTTLE TP SCH (10:00)
[2023-08-12] MEDS: NEPRO (VANILLA) 237 ML CAN PO SCH (10:00)
[2023-08-12] MEDS: REMEDY ESSENTIAL ZINC PASTE 113 GM TP PRN ×2 (10:01→10:08)
[2023-08-12] MEDS: FUROSEMIDE 20 MG TABLET PO SCH (10:04)
[2023-08-12] MEDS: SPIRONOLACTONE 25 MG TABLET PO SCH (10:07)
[2023-08-12] MEDS: REMEDY ESSENTIAL ZINC PASTE 113 GM TOP SCH ×2 (10:09→23:26)
[2023-08-13 00:18] VITALS: BP 120/67; TEMP 97.6; O2SAT 99
[2023-08-13 04:22] VITALS: BP 120/71; TEMP 97.7; O2SAT 97
[2023-08-13] MEDS: MEROPENEM 0.5 G in IV NORMAL SALINE 50 ML IV SCH ×2 (06:16→13:20)
[2023-08-13] MEDS: PANTOPRAZOLE SODIUM 40 MG TABLET.DR PO SCH (06:24)
[2023-08-13] MEDS: MIDODRINE HCL 5 MG TABLET PO SCH ×3 (06:25→21:10)
[2023-08-13 07:25] LABS: BASOPHILS # (AUTO) 0.1 K/UL (0.0-0.2); BASOPHILS % (AUTO) 1.9 % (0.0-2.0); EOSINOPHILS % (AUTO) 0.7 % (0.0-7.0); HEMATOCRIT 21.5 % (36.7-47.1); LYMPHOCYTES # (AUTO) 1.2 K/uL (0.8-4.8); LYMPHOCYTES % (AUTO) 29.9 % (20.5-51.5); MEAN CORPUSCULAR HEMOGLOBIN 33.2 uug (23.8-33.4); MEAN CORPUSCULAR HGB CONC 33 g/dL (32.5-36.3); MEAN CORPUSCULAR VOLUME 99.8 fL (73.0-96.2); MONOCYTES # (AUTO) 0.5 K/uL (0.1-1.30); MONOCYTES % (AUTO) 12.6 % (0.0-11.0); NEUTROPHILS # (AUTO) 2.2 K/uL (1.8-8.9); NEUTROPHILS % (AUTO) 54.9 % (38.5-71.5); PLATELET COUNT (AUTO) 100 K/uL (152-348); RED CELL DISTRIBUTION WIDTH 15.5 % (12.1-16.2); WHITE BLOOD COUNT (AUTO) 4.1 K/uL (3.6-10.2)
[2023-08-13 07:28] LABS: DIFFERENTIAL COMMENT 1; HEMOGLOBIN 7.2 g/dL (12.5-16.3); RED BLOOD CELL COUNT(AUTO) 2.15 MIL/uL (4.06-5.63)
[2023-08-13 08:27] LABS: CALCIUM 8.4 mg/dL (8.5-10.1); CREATININE 0.8 mg/dL (0.6-1.3); MAGNESIUM 2.3 mg/dL (1.8-2.4); PHOSPHOROUS 3.6 mg/dL (2.5-4.9)
[2023-08-13] MEDS: ALLOPURINOL 100 MG TABLET PO SCH (10:09)
[2023-08-13] MEDS: FUROSEMIDE 20 MG TABLET PO SCH (10:09)
[2023-08-13] MEDS: LINEZOLID 600 MG TABLET PO SCH ×2 (10:09→21:08)
[2023-08-13] MEDS: SPIRONOLACTONE 25 MG TABLET PO SCH (10:09)
[2023-08-13] MEDS: NEPRO (VANILLA) 237 ML CAN PO SCH (11:14)
[2023-08-13 11:21] VITALS: BP 103/59; TEMP 97.4; O2SAT 98
[2023-08-13 15:59] VITALS: BP 103/59; TEMP 97.6; O2SAT 97
[2023-08-13] MEDS: SODIUM HYPOCHLORITE 0.125% (QUARTER STRENGTH) 473 ML BOTTLE TP SCH (18:47)
[2023-08-13] MEDS: REMEDY ESSENTIAL ZINC PASTE 113 GM TOP SCH ×2 (18:47→21:16)
[2023-08-13 20:00] VITALS: BP 120/60; TEMP 97.8; O2SAT 100
[2023-08-13] MEDS: METRONIDAZOLE 500 MG TABLET PO SCH (21:08)
[2023-08-14] MEDS: HYDROMORPHONE 1 MG/1 ML DISP.SYRIN IV PRN (00:13)
[2023-08-14 04:00] VITALS: BP 107/61; TEMP 97.7; O2SAT 100
[2023-08-14] MEDS: METRONIDAZOLE 500 MG TABLET PO SCH ×3 (06:32→21:02)
[2023-08-14] MEDS: PANTOPRAZOLE SODIUM 40 MG TABLET.DR PO SCH (06:32)
[2023-08-14] MEDS: MIDODRINE HCL 5 MG TABLET PO SCH ×3 (06:33→21:03)
[2023-08-14 07:00] LABS: BASOPHILS # (AUTO) 0.1 K/UL (0.0-0.2); BASOPHILS % (AUTO) 1.8 % (0.0-2.0); EOSINOPHILS # (AUTO) 0.1 K/uL (0.0-0.7); EOSINOPHILS % (AUTO) 1.6 % (0.0-7.0); HEMATOCRIT 22.5 % (36.7-47.1); LYMPHOCYTES # (AUTO) 1.3 K/uL (0.8-4.8); LYMPHOCYTES % (AUTO) 33.6 % (20.5-51.5); MEAN CORPUSCULAR HEMOGLOBIN 33.2 uug (23.8-33.4); MEAN CORPUSCULAR HGB CONC 33 g/dL (32.5-36.3); MEAN CORPUSCULAR VOLUME 100.5 fL (73.0-96.2); MONOCYTES # (AUTO) 0.5 K/uL (0.1-1.30); MONOCYTES % (AUTO) 12.5 % (0.0-11.0); NEUTROPHILS % (AUTO) 50.5 % (38.5-71.5); PLATELET COUNT (AUTO) 126 K/uL (152-348); RED CELL DISTRIBUTION WIDTH 15.5 % (12.1-16.2); WHITE BLOOD COUNT (AUTO) 3.9 K/uL (3.6-10.2)
[2023-08-14 07:38] LABS: CREATININE 0.9 mg/dL (0.6-1.3)
[2023-08-14 07:58] LABS: DIFFERENTIAL COMMENT 1; HEMOGLOBIN 7.4 g/dL (12.5-16.3); RED BLOOD CELL COUNT(AUTO) 2.24 MIL/uL (4.06-5.63)
[2023-08-14 08:09] LABS: POTASSIUM 4.1 mmol/L (3.5-5.1)
[2023-08-14 08:30] VITALS: BP 108/56; TEMP 97.8; O2SAT 97
[2023-08-14] MEDS: SPIRONOLACTONE 25 MG TABLET PO SCH (09:36)
[2023-08-14] MEDS: ALLOPURINOL 100 MG TABLET PO SCH (09:36)
[2023-08-14] MEDS: FUROSEMIDE 20 MG TABLET PO SCH (09:36)
[2023-08-14] MEDS: NEPRO (VANILLA) 237 ML CAN PO SCH (09:37)
[2023-08-14] MEDS: LINEZOLID 600 MG TABLET PO SCH ×2 (09:37→20:29)
[2023-08-14] MEDS: REMEDY ESSENTIAL ZINC PASTE 113 GM TOP SCH ×2 (09:37→20:29)
[2023-08-14] MEDS: SODIUM HYPOCHLORITE 0.125% (QUARTER STRENGTH) 473 ML BOTTLE TP SCH (09:37)
[2023-08-14 11:58] VITALS: BP 102/58; TEMP 97.5; O2SAT 99
[2023-08-14 16:02] VITALS: BP 113/66; TEMP 97.7; O2SAT 99
[2023-08-14 20:00] VITALS: BP 113/61; TEMP 97.3; O2SAT 99
[2023-08-14] MEDS: TEMAZEPAM 15 MG CAPSULE PO PRN (21:02)
[2023-08-15] MEDS: METRONIDAZOLE 500 MG TABLET PO SCH ×3 (05:24→21:01)
[2023-08-15] MEDS: MIDODRINE HCL 5 MG TABLET PO SCH ×3 (05:24→21:01)
[2023-08-15 06:00] VITALS: BP 101/57; TEMP 97.7; O2SAT 98
[2023-08-15] MEDS: PANTOPRAZOLE SODIUM 40 MG TABLET.DR PO SCH (06:07)
[2023-08-15 07:38] VITALS: BP 108/62; TEMP 97.5; O2SAT 99
[2023-08-15] MEDS: FUROSEMIDE 20 MG TABLET PO SCH (08:22)
[2023-08-15] MEDS: SPIRONOLACTONE 25 MG TABLET PO SCH (08:22)
[2023-08-15] MEDS: NEPRO (VANILLA) 237 ML CAN PO SCH (08:23)
[2023-08-15] MEDS: ALLOPURINOL 100 MG TABLET PO SCH (08:23)
[2023-08-15] MEDS: LINEZOLID 600 MG TABLET PO SCH ×2 (08:23→20:27)
[2023-08-15] MEDS: REMEDY ESSENTIAL ZINC PASTE 113 GM TOP SCH ×2 (08:25→20:52)
[2023-08-15] MEDS: SODIUM HYPOCHLORITE 0.125% (QUARTER STRENGTH) 473 ML BOTTLE TP SCH (08:25)
[2023-08-15 11:37] VITALS: BP 104/63; TEMP 97.5; O2SAT 99
[2023-08-15 15:50] VITALS: BP 110/64; TEMP 97.5; O2SAT 99
[2023-08-15 19:30] VITALS: BP 114/68; TEMP 97.2; O2SAT 99
[2023-08-15] MEDS: REMEDY ESSENTIAL ZINC PASTE 113 GM TP PRN (20:28)
[2023-08-16] MEDS: METRONIDAZOLE 500 MG TABLET PO SCH ×3 (05:32→22:04)
[2023-08-16] MEDS: MIDODRINE HCL 5 MG TABLET PO SCH ×3 (05:33→22:04)
[2023-08-16] MEDS: PANTOPRAZOLE SODIUM 40 MG TABLET.DR PO SCH (06:19)
[2023-08-16 06:22] VITALS: BP 112/67; TEMP 97.6; O2SAT 98
[2023-08-16 09:08] VITALS: BP 134/78; TEMP 98.2; O2SAT 100
[2023-08-16] MEDS: FUROSEMIDE 20 MG TABLET PO SCH (09:10)
[2023-08-16] MEDS: SPIRONOLACTONE 25 MG TABLET PO SCH (09:10)
[2023-08-16] MEDS: NEPRO (VANILLA) 237 ML CAN PO SCH (09:10)
[2023-08-16] MEDS: LINEZOLID 600 MG TABLET PO SCH ×2 (09:12→20:16)
[2023-08-16] MEDS: ALLOPURINOL 100 MG TABLET PO SCH (09:12)
[2023-08-16] MEDS: SODIUM HYPOCHLORITE 0.125% (QUARTER STRENGTH) 473 ML BOTTLE TP SCH (09:13)
[2023-08-16] MEDS: REMEDY ESSENTIAL ZINC PASTE 113 GM TOP SCH ×2 (09:14→20:32)
[2023-08-16 10:32] LABS: CALCIUM 7.9 mg/dL (8.5-10.1); PHOSPHOROUS 4.2 mg/dL (2.5-4.9)
[2023-08-16 10:38] LABS: POTASSIUM 4.3 mmol/L (3.5-5.1)
[2023-08-16 13:31] LABS: BASOPHILS # (AUTO) 0.1 K/UL (0.0-0.2); BASOPHILS % (AUTO) 1.5 % (0.0-2.0); DIFFERENTIAL COMMENT 0; EOSINOPHILS # (AUTO) 0.1 K/uL (0.0-0.7); EOSINOPHILS % (AUTO) 1.3 % (0.0-7.0); LYMPHOCYTES # (AUTO) 1.3 K/uL (0.8-4.8); LYMPHOCYTES % (AUTO) 29.2 % (20.5-51.5); MEAN CORPUSCULAR HEMOGLOBIN 32.8 uug (23.8-33.4); MEAN CORPUSCULAR HGB CONC 33 g/dL (32.5-36.3); MEAN CORPUSCULAR VOLUME 98.8 fL (73.0-96.2); MONOCYTES # (AUTO) 0.4 K/uL (0.1-1.30); MONOCYTES % (AUTO) 8.6 % (0.0-11.0); NEUTROPHILS # (AUTO) 2.6 K/uL (1.8-8.9); NEUTROPHILS % (AUTO) 59.4 % (38.5-71.5); PLATELET COUNT (AUTO) 154 K/uL (152-348); RED CELL DISTRIBUTION WIDTH 15.7 % (12.1-16.2); WHITE BLOOD COUNT (AUTO) 4.5 K/uL (3.6-10.2)
[2023-08-16 13:47] VITALS: BP 104/61; TEMP 98.2; O2SAT 99
[2023-08-16 14:31] LABS: HEMATOCRIT 20.1 % (36.7-47.1); RED BLOOD CELL COUNT(AUTO) 2.03 MIL/uL (4.06-5.63)
[2023-08-16 15:05] LABS: HEMOGLOBIN 6.7 g/dL (12.5-16.3)
[2023-08-16 15:06] LABS: NEUTROPHILS % (MANUAL) 0 % (42-75)
[2023-08-16 15:07] LABS: LYMPHOCYTES % (MANUAL) 0 % (20-40)
[2023-08-16 21:34] VITALS: BP 132/97; TEMP 98.5; O2SAT 100
[2023-08-17] VITALS (12 sets, daily range): BP systolic 101–124; BP diastolic 52–70; TEMP 97.7–99.2; O2SAT 95–100
[2023-08-17] MEDS: PANTOPRAZOLE SODIUM 40 MG TABLET.DR PO SCH (06:07)
[2023-08-17] MEDS: METRONIDAZOLE 500 MG TABLET PO SCH ×3 (06:07→21:15)
[2023-08-17] MEDS: MIDODRINE HCL 5 MG TABLET PO SCH ×3 (06:08→21:16)
[2023-08-17 06:13] LABS: DIFFERENTIAL COMMENT 0; EOSINOPHILS % (AUTO) 1.1 % (0.0-7.0); LYMPHOCYTES # (AUTO) 1.1 K/uL (0.8-4.8); LYMPHOCYTES % (AUTO) 33.4 % (20.5-51.5); MEAN CORPUSCULAR HEMOGLOBIN 32.7 uug (23.8-33.4); MEAN CORPUSCULAR HGB CONC 33 g/dL (32.5-36.3); MEAN CORPUSCULAR VOLUME 98.2 fL (73.0-96.2); MONOCYTES # (AUTO) 0.4 K/uL (0.1-1.30); MONOCYTES % (AUTO) 10.7 % (0.0-11.0); NEUTROPHILS # (AUTO) 1.9 K/uL (1.8-8.9); NEUTROPHILS % (AUTO) 54.8 % (38.5-71.5); PLATELET COUNT (AUTO) 158 K/uL (152-348); RED CELL DISTRIBUTION WIDTH 15.7 % (12.1-16.2); WHITE BLOOD COUNT (AUTO) 3.4 K/uL (3.6-10.2)
[2023-08-17 06:43] LABS: CALCIUM 7.6 mg/dL (8.5-10.1); MAGNESIUM 1.8 mg/dL (1.8-2.4); PHOSPHOROUS 3.7 mg/dL (2.5-4.9); POTASSIUM 3.9 mmol/L (3.5-5.1)
[2023-08-17 06:52] LABS: HEMATOCRIT 19.4 % (36.7-47.1); HEMOGLOBIN 6.5 g/dL (12.5-16.3); RED BLOOD CELL COUNT(AUTO) 1.97 MIL/uL (4.06-5.63)
[2023-08-17] MEDS: SPIRONOLACTONE 25 MG TABLET PO SCH (09:44)
[2023-08-17] MEDS: ALLOPURINOL 100 MG TABLET PO SCH (09:44)
[2023-08-17] MEDS: FUROSEMIDE 20 MG TABLET PO SCH (09:44)
[2023-08-17] MEDS: SODIUM HYPOCHLORITE 0.125% (QUARTER STRENGTH) 473 ML BOTTLE TP SCH (09:45)
[2023-08-17] MEDS: REMEDY ESSENTIAL ZINC PASTE 113 GM TOP SCH ×2 (09:45→21:00)
[2023-08-17] MEDS: LINEZOLID 600 MG TABLET PO SCH ×2 (09:46→21:16)
[2023-08-17] MEDS: NEPRO (VANILLA) 237 ML CAN PO SCH (09:47)
[2023-08-17 16:08] LABS: HEMATOCRIT 23.2 % (36.7-47.1); HEMOGLOBIN 7.9 g/dL (12.5-16.3)
[2023-08-17] MEDS: TEMAZEPAM 15 MG CAPSULE PO PRN (21:15)
[2023-08-18 04:00] VITALS: BP 123/66; TEMP 97.9; O2SAT 95
[2023-08-18] MEDS: MIDODRINE HCL 5 MG TABLET PO SCH ×3 (06:00→21:17)
[2023-08-18] MEDS: METRONIDAZOLE 500 MG TABLET PO SCH ×3 (06:34→21:17)
[2023-08-18] MEDS: PANTOPRAZOLE SODIUM 40 MG TABLET.DR PO SCH (06:34)
[2023-08-18 06:46] LABS: HEMATOCRIT 21.2 % (36.7-47.1); LYMPHOCYTES # (AUTO) 1.2 K/uL (0.8-4.8); MONOCYTES # (AUTO) 0.2 K/uL (0.1-1.30); MONOCYTES % (AUTO) 5.6 % (0.0-11.0); WHITE BLOOD COUNT (AUTO) 3.3 K/uL (3.6-10.2)
[2023-08-18 06:48] LABS: BASOPHILS % (AUTO) 1.1 % (0.0-2.0); EOSINOPHILS % (AUTO) 0.7 % (0.0-7.0); LYMPHOCYTES % (AUTO) 37.3 % (20.5-51.5); MEAN CORPUSCULAR HEMOGLOBIN 33.6 uug (23.8-33.4); MEAN CORPUSCULAR HGB CONC 35 g/dL (32.5-36.3); MEAN CORPUSCULAR VOLUME 96.8 fL (73.0-96.2); NEUTROPHILS # (AUTO) 1.8 K/uL (1.8-8.9); NEUTROPHILS % (AUTO) 55.3 % (38.5-71.5); PLATELET COUNT (AUTO) 141 K/uL (152-348); RED CELL DISTRIBUTION WIDTH 15.6 % (12.1-16.2)
[2023-08-18 07:00] LABS: DIFFERENTIAL COMMENT 1; HEMOGLOBIN 7.4 g/dL (12.5-16.3); RED BLOOD CELL COUNT(AUTO) 2.19 MIL/uL (4.06-5.63)
[2023-08-18 07:05] LABS: CALCIUM 7.5 mg/dL (8.5-10.1); CREATININE 0.9 mg/dL (0.6-1.3); MAGNESIUM 1.8 mg/dL (1.8-2.4); PHOSPHOROUS 3.5 mg/dL (2.5-4.9); POTASSIUM 3.8 mmol/L (3.5-5.1)
[2023-08-18] MEDS: FUROSEMIDE 20 MG TABLET PO SCH (08:45)
[2023-08-18] MEDS: ALLOPURINOL 100 MG TABLET PO SCH (08:45)
[2023-08-18] MEDS: LINEZOLID 600 MG TABLET PO SCH ×2 (08:45→21:17)
[2023-08-18] MEDS: SPIRONOLACTONE 25 MG TABLET PO SCH (08:45)
[2023-08-18] MEDS: NEPRO (VANILLA) 237 ML CAN PO SCH (08:52)
[2023-08-18] MEDS: REMEDY ESSENTIAL ZINC PASTE 113 GM TOP SCH ×2 (08:52→21:16)
[2023-08-18] MEDS: SODIUM HYPOCHLORITE 0.125% (QUARTER STRENGTH) 473 ML BOTTLE TP SCH (11:29)
[2023-08-18 11:53] VITALS: BP 122/73; TEMP 98.4; O2SAT 96
[2023-08-18 16:00] VITALS: BP 128/70; TEMP 99; O2SAT 98
[2023-08-18 20:10] VITALS: BP 122/62; TEMP 99.4; O2SAT 99
[2023-08-19] MEDS: HYDROMORPHONE 1 MG/1 ML DISP.SYRIN IV PRN (04:08)
[2023-08-19 06:00] VITALS: BP 121/71; TEMP 99.4; O2SAT 94
[2023-08-19] MEDS: MIDODRINE HCL 5 MG TABLET PO SCH ×3 (06:00→22:18)
[2023-08-19] MEDS: METRONIDAZOLE 500 MG TABLET PO SCH ×3 (06:26→22:06)
[2023-08-19] MEDS: PANTOPRAZOLE SODIUM 40 MG TABLET.DR PO SCH (06:26)
[2023-08-19 09:00] VITALS: BP 128/58; TEMP 98.2; O2SAT 94
[2023-08-19] MEDS: NEPRO (VANILLA) 237 ML CAN PO SCH (09:00)
[2023-08-19 09:33] VITALS: BP 118/62; TEMP 98.5; O2SAT 94
[2023-08-19] MEDS: ALLOPURINOL 100 MG TABLET PO SCH (09:34)
[2023-08-19] MEDS: REMEDY ESSENTIAL ZINC PASTE 113 GM TOP SCH ×2 (09:35→21:24)
[2023-08-19] MEDS: SPIRONOLACTONE 25 MG TABLET PO SCH (09:35)
[2023-08-19] MEDS: FUROSEMIDE 20 MG TABLET PO SCH (09:35)
[2023-08-19] MEDS: SODIUM HYPOCHLORITE 0.125% (QUARTER STRENGTH) 473 ML BOTTLE TP SCH (09:36)
[2023-08-19] MEDS: LINEZOLID 600 MG TABLET PO SCH ×2 (09:38→21:13)
[2023-08-19 11:20] LABS: BASOPHILS % (AUTO) 0.9 % (0.0-2.0); EOSINOPHILS % (AUTO) 0.7 % (0.0-7.0); HEMATOCRIT 22.7 % (36.7-47.1); HEMOGLOBIN 7.6 g/dL (12.5-16.3); LYMPHOCYTES % (AUTO) 37.2 % (20.5-51.5); MEAN CORPUSCULAR HEMOGLOBIN 33.1 uug (23.8-33.4); MEAN CORPUSCULAR HGB CONC 34 g/dL (32.5-36.3); MEAN CORPUSCULAR VOLUME 98.7 fL (73.0-96.2); MONOCYTES # (AUTO) 0.2 K/uL (0.1-1.30); MONOCYTES % (AUTO) 6.2 % (0.0-11.0); NEUTROPHILS # (AUTO) 1.4 K/uL (1.8-8.9); PLATELET COUNT (AUTO) 124 K/uL (152-348); RED CELL DISTRIBUTION WIDTH 15.8 % (12.1-16.2); WHITE BLOOD COUNT (AUTO) 2.6 K/uL (3.6-10.2)
[2023-08-19] MEDS ORDERED: HYDROMORPHONE 2 MG/1 ML DISP.SYRIN ONE (11:29)
[2023-08-19 11:30] VITALS: BP 103/58; TEMP 98.8; O2SAT 94
[2023-08-19 11:40] LABS: *OCCULT BLOOD STOOL POSITIVE (NEGATIVE)
[2023-08-19 11:41] LABS: DIFFERENTIAL COMMENT 1
[2023-08-19 11:44] LABS: CALCIUM 7.7 mg/dL (8.5-10.1); CREATININE 1.1 mg/dL (0.6-1.3); POTASSIUM 4.1 mmol/L (3.5-5.1)
[2023-08-19] MEDS ORDERED: VANCOMYCIN 1000 MG VIAL ONE (11:52)
[2023-08-19 12:55] LABS: ANISOCYTOSIS 1+; EOSINOPHILS % (MANUAL) 3 % (0-8); LYMPHOCYTES % (MANUAL) 36 % (20-40); MONOCYTES % (MANUAL) 6 % (2-10); NEUTROPHILS % (MANUAL) 55 % (42-75); PLATELET ESTIMATE MODERATELY DECREASED
[2023-08-19 15:58] VITALS: BP 90/57; TEMP 98.7; O2SAT 95
[2023-08-19 19:30] VITALS: BP 114/58; TEMP 98.3; O2SAT 98
[2023-08-20] MEDS: TEMAZEPAM 15 MG CAPSULE PO PRN (01:25)
[2023-08-20 05:45] VITALS: BP 110/60; TEMP 98.4; O2SAT 95
[2023-08-20] MEDS: METRONIDAZOLE 500 MG TABLET PO SCH ×2 (06:07→15:09)
[2023-08-20] MEDS: MIDODRINE HCL 5 MG TABLET PO SCH ×3 (06:07→22:30)
[2023-08-20] MEDS: PANTOPRAZOLE SODIUM 40 MG TABLET.DR PO SCH (06:07)
[2023-08-20 06:34] LABS: EOSINOPHILS # (AUTO) 0.1 K/uL (0.0-0.7); EOSINOPHILS % (AUTO) 2.3 % (0.0-7.0); HEMATOCRIT 21.5 % (36.7-47.1); LYMPHOCYTES # (AUTO) 1.1 K/uL (0.8-4.8); LYMPHOCYTES % (AUTO) 39.4 % (20.5-51.5); MEAN CORPUSCULAR HEMOGLOBIN 33.5 uug (23.8-33.4); MEAN CORPUSCULAR HGB CONC 34 g/dL (32.5-36.3); MEAN CORPUSCULAR VOLUME 99.3 fL (73.0-96.2); MONOCYTES # (AUTO) 0.1 K/uL (0.1-1.30); MONOCYTES % (AUTO) 4.5 % (0.0-11.0); NEUTROPHILS # (AUTO) 1.5 K/uL (1.8-8.9); NEUTROPHILS % (AUTO) 52.8 % (38.5-71.5); PLATELET COUNT (AUTO) 116 K/uL (152-348); WHITE BLOOD COUNT (AUTO) 2.9 K/uL (3.6-10.2)
[2023-08-20] MEDS: IV NS 1000 ML 1,000 ML IV PRN ×2 (06:48→20:56)
[2023-08-20 07:02] LABS: DIFFERENTIAL COMMENT 1; HEMOGLOBIN 7.2 g/dL (12.5-16.3); RED BLOOD CELL COUNT(AUTO) 2.16 MIL/uL (4.06-5.63)
[2023-08-20 07:10] LABS: CALCIUM 7.4 mg/dL (8.5-10.1); CREATININE 1.2 mg/dL (0.6-1.3); MAGNESIUM 1.7 mg/dL (1.8-2.4); PHOSPHOROUS 3.7 mg/dL (2.5-4.9); POTASSIUM 4.3 mmol/L (3.5-5.1)
[2023-08-20] MEDS ORDERED: MAGNESIUM OXIDE 400 MG TABLET PO ONE (09:30)
[2023-08-20] MEDS: FUROSEMIDE 20 MG TABLET PO SCH (09:36)
[2023-08-20] MEDS: ALLOPURINOL 100 MG TABLET PO SCH (09:36)
[2023-08-20] MEDS: SPIRONOLACTONE 25 MG TABLET PO SCH (09:36)
[2023-08-20] MEDS: LINEZOLID 600 MG TABLET PO SCH ×2 (09:54→20:56)
[2023-08-20] MEDS: NEPRO (VANILLA) 237 ML CAN PO SCH (09:55)
[2023-08-20] MEDS: REMEDY ESSENTIAL ZINC PASTE 113 GM TOP SCH ×2 (10:04→20:56)
[2023-08-20] MEDS: SODIUM HYPOCHLORITE 0.125% (QUARTER STRENGTH) 473 ML BOTTLE TP SCH (10:14)
[2023-08-20 11:57] VITALS: BP 111/66; TEMP 98.3; O2SAT 96
[2023-08-20] MEDS: HYDROMORPHONE 1 MG/1 ML DISP.SYRIN IV PRN ×2 (15:19→15:46)
[2023-08-20 15:47] VITALS: BP 120/71; TEMP 98.4; O2SAT 98
[2023-08-20 20:00] VITALS: BP 110/65; TEMP 98.7; O2SAT 95
[2023-08-21 00:02] VITALS: BP 130/71; TEMP 98.6; O2SAT 98
[2023-08-21] MEDS: TEMAZEPAM 15 MG CAPSULE PO PRN ×2 (01:27→21:02)
[2023-08-21 04:06] VITALS: BP 109/62; TEMP 97.5; O2SAT 96
[2023-08-21] MEDS: MIDODRINE HCL 5 MG TABLET PO SCH ×3 (06:00→21:01)
[2023-08-21] MEDS: PANTOPRAZOLE SODIUM 40 MG TABLET.DR PO SCH (06:12)
[2023-08-21] MEDS: IV NS 1000 ML 1,000 ML IV PRN ×2 (06:16→16:39)
[2023-08-21 07:57] LABS: BASOPHILS % (AUTO) 0.9 % (0.0-2.0); EOSINOPHILS # (AUTO) 0.1 K/uL (0.0-0.7); EOSINOPHILS % (AUTO) 2.3 % (0.0-7.0); LYMPHOCYTES # (AUTO) 1.2 K/uL (0.8-4.8); LYMPHOCYTES % (AUTO) 40.9 % (20.5-51.5); MEAN CORPUSCULAR HEMOGLOBIN 32.9 uug (23.8-33.4); MEAN CORPUSCULAR HGB CONC 33 g/dL (32.5-36.3); MEAN CORPUSCULAR VOLUME 98.9 fL (73.0-96.2); MONOCYTES # (AUTO) 0.1 K/uL (0.1-1.30); MONOCYTES % (AUTO) 4.4 % (0.0-11.0); NEUTROPHILS # (AUTO) 1.5 K/uL (1.8-8.9); NEUTROPHILS % (AUTO) 51.5 % (38.5-71.5); PLATELET COUNT (AUTO) 89 K/uL (152-348); WHITE BLOOD COUNT (AUTO) 2.9 K/uL (3.6-10.2)
[2023-08-21 08:17] LABS: CALCIUM 7.4 mg/dL (8.5-10.1); MAGNESIUM 1.9 mg/dL (1.8-2.4); PHOSPHOROUS 3.4 mg/dL (2.5-4.9); POTASSIUM 4.6 mmol/L (3.5-5.1)
[2023-08-21 08:19] LABS: DIFFERENTIAL COMMENT 1; RED BLOOD CELL COUNT(AUTO) 2.12 MIL/uL (4.06-5.63)
[2023-08-21 08:22] LABS: NEUTROPHILS % (MANUAL) 0 % (42-75)
[2023-08-21 08:23] LABS: LYMPHOCYTES % (MANUAL) 0 % (20-40)
[2023-08-21] MEDS: SPIRONOLACTONE 25 MG TABLET PO SCH (08:53)
[2023-08-21] MEDS: ALLOPURINOL 100 MG TABLET PO SCH (08:53)
[2023-08-21] MEDS: REMEDY ESSENTIAL ZINC PASTE 113 GM TOP SCH ×2 (08:54→21:01)
[2023-08-21] MEDS: NEPRO (VANILLA) 237 ML CAN PO SCH (08:54)
[2023-08-21] MEDS: FUROSEMIDE 20 MG TABLET PO SCH (08:54)
[2023-08-21] MEDS: SODIUM HYPOCHLORITE 0.125% (QUARTER STRENGTH) 473 ML BOTTLE TP SCH (08:55)
[2023-08-21 08:56] VITALS: BP 108/66; TEMP 97.7; O2SAT 99
[2023-08-21 11:32] VITALS: BP 105/63; TEMP 97.7; O2SAT 98
[2023-08-21] MEDS: HYDROMORPHONE 1 MG/1 ML DISP.SYRIN IV PRN ×2 (11:59→15:41)
[2023-08-21 16:00] VITALS: BP 111/77; TEMP 97.9; O2SAT 99
[2023-08-21 20:00] VITALS: BP 137/84; TEMP 97.6; O2SAT 98
[2023-08-22 04:00] VITALS: BP 123/66; TEMP 97.7; O2SAT 98
[2023-08-22] MEDS: IV NS 1000 ML 1,000 ML IV PRN ×2 (04:20→14:40)
[2023-08-22] MEDS: MIDODRINE HCL 5 MG TABLET PO SCH ×3 (06:00→21:57)
[2023-08-22] MEDS: PANTOPRAZOLE SODIUM 40 MG TABLET.DR PO SCH (06:09)
[2023-08-22 07:59] VITALS: BP 112/64; TEMP 97.4; O2SAT 100
[2023-08-22] MEDS: SPIRONOLACTONE 25 MG TABLET PO SCH (08:59)
[2023-08-22] MEDS: REMEDY ESSENTIAL ZINC PASTE 113 GM TOP SCH ×2 (08:59→20:55)
[2023-08-22] MEDS: NEPRO (VANILLA) 237 ML CAN PO SCH (08:59)
[2023-08-22] MEDS: ALLOPURINOL 100 MG TABLET PO SCH (08:59)
[2023-08-22] MEDS: FUROSEMIDE 20 MG TABLET PO SCH (08:59)
[2023-08-22] MEDS: SODIUM HYPOCHLORITE 0.125% (QUARTER STRENGTH) 473 ML BOTTLE TP SCH (09:00)
[2023-08-22 12:00] VITALS: BP 112/69; TEMP 97.6; O2SAT 99
[2023-08-22 12:07] LABS: BASOPHILS % (AUTO) 0.8 % (0.0-2.0); EOSINOPHILS # (AUTO) 0.1 K/uL (0.0-0.7); EOSINOPHILS % (AUTO) 3.7 % (0.0-7.0); HEMATOCRIT 22.6 % (36.7-47.1); HEMOGLOBIN 7.5 g/dL (12.5-16.3); LYMPHOCYTES % (AUTO) 33.8 % (20.5-51.5); MEAN CORPUSCULAR HEMOGLOBIN 33.2 uug (23.8-33.4); MEAN CORPUSCULAR HGB CONC 33 g/dL (32.5-36.3); MEAN CORPUSCULAR VOLUME 99.5 fL (73.0-96.2); MONOCYTES # (AUTO) 0.1 K/uL (0.1-1.30); MONOCYTES % (AUTO) 3.2 % (0.0-11.0); NEUTROPHILS # (AUTO) 1.7 K/uL (1.8-8.9); NEUTROPHILS % (AUTO) 58.5 % (38.5-71.5); PLATELET COUNT (AUTO) 63 K/uL (152-348)
[2023-08-22 12:36] LABS: DIFFERENTIAL COMMENT 1; RED BLOOD CELL COUNT(AUTO) 2.27 MIL/uL (4.06-5.63)
[2023-08-22 16:18] VITALS: BP 119/70; TEMP 97.6; O2SAT 100
[2023-08-22] MEDS: HYDROMORPHONE 1 MG/1 ML DISP.SYRIN IV PRN (17:44)
[2023-08-22 20:00] VITALS: BP 132/80; TEMP 97.6; O2SAT 97
[2023-08-23 04:00] VITALS: BP 115/67; TEMP 97.6; O2SAT 100
[2023-08-23] MEDS: IV NS 1000 ML 1,000 ML IV PRN (04:58)
[2023-08-23] MEDS: MIDODRINE HCL 5 MG TABLET PO SCH ×2 (05:51→13:28)
[2023-08-23] MEDS: HYDROMORPHONE 1 MG/1 ML DISP.SYRIN IV PRN (05:53)
[2023-08-23] MEDS: PANTOPRAZOLE SODIUM 40 MG TABLET.DR PO SCH (06:22)
[2023-08-23 08:00] VITALS: BP 120/73; TEMP 97.3; O2SAT 100
[2023-08-23] MEDS: FUROSEMIDE 20 MG TABLET PO SCH (09:20)
[2023-08-23] MEDS: SPIRONOLACTONE 25 MG TABLET PO SCH (09:20)
[2023-08-23] MEDS: ALLOPURINOL 100 MG TABLET PO SCH (09:20)
[2023-08-23] MEDS: NEPRO (VANILLA) 237 ML CAN PO SCH (09:21)
[2023-08-23] MEDS: REMEDY ESSENTIAL ZINC PASTE 113 GM TOP SCH (09:22)
[2023-08-23 09:30] LABS: BASOPHILS % (AUTO) 0.9 % (0.0-2.0); EOSINOPHILS # (AUTO) 0.1 K/uL (0.0-0.7); EOSINOPHILS % (AUTO) 4.3 % (0.0-7.0); HEMATOCRIT 22.1 % (36.7-47.1); LYMPHOCYTES # (AUTO) 1.1 K/uL (0.8-4.8); LYMPHOCYTES % (AUTO) 35.6 % (20.5-51.5); MEAN CORPUSCULAR HEMOGLOBIN 33.6 uug (23.8-33.4); MEAN CORPUSCULAR HGB CONC 34 g/dL (32.5-36.3); MEAN CORPUSCULAR VOLUME 99.7 fL (73.0-96.2); MONOCYTES # (AUTO) 0.1 K/uL (0.1-1.30); MONOCYTES % (AUTO) 3.6 % (0.0-11.0); NEUTROPHILS # (AUTO) 1.7 K/uL (1.8-8.9); NEUTROPHILS % (AUTO) 55.6 % (38.5-71.5); PLATELET COUNT (AUTO) 59 K/uL (152-348)
[2023-08-23 09:37] LABS: HEMOGLOBIN 7.4 g/dL (12.5-16.3); RED BLOOD CELL COUNT(AUTO) 2.22 MIL/uL (4.06-5.63)
[2023-08-23 09:38] LABS: DIFFERENTIAL COMMENT 1
[2023-08-23 09:43] LABS: CREATININE 0.9 mg/dL (0.6-1.3); POTASSIUM 3.6 mmol/L (3.5-5.1)
[2023-08-23 09:53] LABS: BILIRUBIN,TOTAL 0.6 mg/dL (0.2-1.0); TOTAL PROTEIN, SERUM 6.1 g/dL (6.4-8.2)
[2023-08-23 10:56] VITALS: BP 135/79; TEMP 97.8; O2SAT 100
[2023-08-23] MEDS ORDERED: MIDO5TAB4 PO (11:01)
[2023-08-23] MEDS ORDERED: SPIR25TA PO (11:01)
[2023-08-23] MEDS ORDERED: SODI473S8 TP (11:01)
[2023-08-23] MEDS ORDERED: FURO20TA4 PO (11:01)
[2023-08-23 13:28] VITALS: BP 117/60
[2023-08-23] MEDS: SODIUM HYPOCHLORITE 0.125% (QUARTER STRENGTH) 473 ML BOTTLE TP SCH (13:36)
== END 2023-08-23 17:55 | DRG 720 ==
LOC: ER 18:47 → TRANSITION 08-03 03:04 → CCU 08-03 12:03 → TELE3 08-12 19:55 → MEDSURG3 08-13 11:24 → MED 08-14 07:46 → MEDSURG3 08-16 18:13
PROVIDERS: ADMIT Nurse Practitioner Family; ATTEND Student in an Organized Health Care Education/Training Program
PROC: 0JBC3ZZ Excision of Pelvic Region Subcutaneous Tissue and Fascia, Percutaneous Approach (ICD-10-PCS; principal; 2023-08-05)
PROC: 0JBB3ZZ Excision of Perineum Subcutaneous Tissue and Fascia, Percutaneous Approach (ICD-10-PCS; principal; 2023-08-05)
PROC: 30233N1 Transfusion of Nonautologous Red Blood Cells into Peripheral Vein, Percutaneous Approach (ICD-10-PCS; 2023-08-17)
PROC: 3E1038Z Irrigation of Skin and Mucous Membranes using Irrigating Substance, Percutaneous Approach (ICD-10-PCS; 2023-08-19)
DX: A41.9 Sepsis, unspecified organism (principal); N17.0 Acute kidney failure with tubular necrosis; R65.21 Severe sepsis with septic shock; D61.818 Other pancytopenia; E43 Unspecified severe protein-calorie malnutrition; K70.31 Alcoholic cirrhosis of liver with ascites; I13.0 Hypertensive heart and chronic kidney disease with heart failure and stage 1 through stage 4 chronic kidney disease, or unspecified chronic kidney disease; E86.0 Dehydration; N49.3 Fournier gangrene; B96.6 Bacteroides fragilis [B. fragilis] as the cause of diseases classified elsewhere; K61.31 Horseshoe abscess; L03.116 Cellulitis of left lower limb; L03.115 Cellulitis of right lower limb; E87.1 Hypo-osmolality and hyponatremia; E88.09 Other disorders of plasma-protein metabolism, not elsewhere classified; R60.1 Generalized edema; F10.10 Alcohol abuse, uncomplicated; K61.1 Rectal abscess; B96.89 Other specified bacterial agents as the cause of diseases classified elsewhere; Z16.21 Resistance to vancomycin; Z59.02 Unsheltered homelessness; Z86.711 Personal history of pulmonary embolism; E87.6 Hypokalemia; E83.42 Hypomagnesemia; F19.10 Other psychoactive substance abuse, uncomplicated; E66.01 Morbid (severe) obesity due to excess calories; M10.9 Gout, unspecified; K05.6 Periodontal disease, unspecified; N18.9 Chronic kidney disease, unspecified; Z79.01 Long term (current) use of anticoagulants; M89.8X9 Other specified disorders of bone, unspecified site; F12.10 Cannabis abuse, uncomplicated
CPT/HCPCS: 36415; 36569; 70030-TC; 71045; 76700; 76770; 83550; 83735; 83970; 84100; 84155; 84165; 84443; 84484; 85018; 85025; 86850; 86900; 86901; 86920; 87040; 88312-TC; 93005; 93307; A4606; A4649; A4663; G0378; G0480; J0690; J0696; J1170; J1940; J1956; J2001; J2185; J2250; J2543; J3010; J3370; J3475; J3480; J3490; J7040; J7050; J7060; J8499; P9016; P9047

== ENCOUNTER 2023-08-27 08:40 | Emergency (ER) | payer OTHER ==
[~2023-08-27] VITALS: Ht 185.4 cm; Wt 102.1 kg
[~2023-08-27 08:40] MED LIST: ALLO100T56 PO; APIX5TAB PO; FURO20TA4 PO; LISI20TA30 PO; MIDO5TAB4 PO; SODI473S8 TP; SPIR25TA PO
[2023-08-27 11:07] VITALS: BP 105/56; O2SAT 100
== END 2023-08-27 11:07 ==
LOC: ER 08:40
DX: S31.501D Unspecified open wound of unspecified external genital organs, male, subsequent encounter (principal); I10 Essential (primary) hypertension; K74.60 Unspecified cirrhosis of liver; Z79.899 Other long term (current) drug therapy; X58.XXXD Exposure to other specified factors, subsequent encounter
CPT/HCPCS: A4606; A4663

== ENCOUNTER 2023-09-05 09:30 | Emergency (ER) | payer OTHER ==
[~2023-09-05] VITALS: Ht 185.4 cm; Wt 93.0 kg
[2023-09-05] MEDS ORDERED: MAGN400O6 PO (09:53)
[2023-09-05] MEDS ORDERED: BISA10SU61 RC (09:53)
[2023-09-05] MEDS ORDERED: NA P133E RC (09:53)
[2023-09-05] MEDS ORDERED: ACET325C7 PO ×2 (09:53)
[2023-09-05] MEDS ORDERED: SPIR50TA PO (09:53)
[2023-09-05 10:51] LABS: BASOPHILS # (AUTO) 0.1 K/UL (0.0-0.2); BASOPHILS % (AUTO) 1.9 % (0.0-2.0); EOSINOPHILS # (AUTO) 0.1 K/uL (0.0-0.7); LYMPHOCYTES # (AUTO) 1.5 K/uL (0.8-4.8); LYMPHOCYTES % (AUTO) 31.4 % (20.5-51.5); MEAN CORPUSCULAR HEMOGLOBIN 33.8 uug (23.8-33.4); MEAN CORPUSCULAR HGB CONC 33 g/dL (32.5-36.3); MEAN CORPUSCULAR VOLUME 101.7 fL (73.0-96.2); MONOCYTES # (AUTO) 0.4 K/uL (0.1-1.30); NEUTROPHILS # (AUTO) 2.7 K/uL (1.8-8.9); NEUTROPHILS % (AUTO) 55.7 % (38.5-71.5); PLATELET COUNT (AUTO) 239 K/uL (152-348); RED CELL DISTRIBUTION WIDTH 15.4 % (12.1-16.2); WHITE BLOOD COUNT (AUTO) 4.9 K/uL (3.6-10.2)
[2023-09-05 10:52] LABS: DIFFERENTIAL COMMENT 1; RED BLOOD CELL COUNT(AUTO) 2.02 MIL/uL (4.06-5.63)
[2023-09-05 10:53] LABS: HEMATOCRIT 20.6 % (36.7-47.1); HEMOGLOBIN 6.8 g/dL (12.5-16.3)
[2023-09-05 11:14] LABS: CALCIUM 7.8 mg/dL (8.5-10.1); POTASSIUM 4.2 mmol/L (3.5-5.1)
[2023-09-05] MEDS ORDERED: IOHEXOL 300MG/ML 100 ML INFUS..BTL ONE (12:29)
[2023-09-05] MEDS ORDERED: IV NORMAL SALINE 250 ML IV ONE (12:31)
[2023-09-05] MEDS ORDERED: SWABABLE VALVE TRANSFER SET EA MC ONE (12:37)
[2023-09-05 12:56] LABS: EOSINOPHILS % (MANUAL) 3 % (0-8); MONOCYTES % (MANUAL) 7 % (2-10); PLATELET ESTIMATE MARKED INCREASED
[2023-09-05 12:57] LABS: LYMPHOCYTES % (MANUAL) 32 % (20-40); NEUTROPHILS % (MANUAL) 58 % (42-75)
[2023-09-05 21:04] VITALS: O2SAT 100
== END 2023-09-05 22:00 | disposition short-term general hospital (02) ==
LOC: ER 09:30
DX: D64.9 Anemia, unspecified (principal); R60.1 Generalized edema; I95.9 Hypotension, unspecified; I50.9 Heart failure, unspecified; Z79.899 Other long term (current) drug therapy
CPT/HCPCS: 99291; 72193; 80048; 83880; 85025; 85730; 86850; 86900; 86901; 86920; 36415; 93005; 71045; 85007; Q9967; 70030-TC; A4606; A4663; P9016